=== PATIENT | male | born 1985 | race Caucasian/White ===

== ENCOUNTER 2016-05-12 20:28 | Emergency (ER) | payer OTHER ==
[~2016-05-12] VITALS: Ht 177.8 cm; Wt 89.0 kg
[2016-05-12] MEDS ORDERED: NAPROSYN500 MG PO (22:19)
[2016-05-12] MEDS ORDERED: PERCOCET 5/31 TABLET PO (22:19)
[2016-05-12 22:38] VITALS: BP 136/78
== END 2016-05-12 22:40 | disposition home or self-care (01) ==
LOC: EME 20:28
DX: S43.001A Unspecified subluxation of right shoulder joint, initial encounter (principal); S09.90XA Unspecified injury of head, initial encounter; V00.311A Fall from snowboard, initial encounter; Y93.23 Activity, snow (alpine) (downhill) skiing, snowboarding, sledding, tobogganing and snow tubing
CPT/HCPCS: 70450; 73030; 99281; 99284